=== PATIENT | male | born 1940 | race Two or more races ===

== ENCOUNTER 2022-06-25 11:32 | Emergency (ER) | payer OTHER, MEDICAID ==
[~2022-06-25] VITALS: Ht 170.2 cm; Wt 77.0 kg
[2022-06-25 19:32] VITALS: BP 144/78
== END 2022-06-25 20:57 | disposition home or self-care (01) ==
LOC: ER 14:41
DX: I10 Essential (primary) hypertension (principal); E11.9 Type 2 diabetes mellitus without complications; E78.00 Pure hypercholesterolemia, unspecified; Z98.890 Other specified postprocedural states
CPT/HCPCS: 99281

== ENCOUNTER 2023-01-08 10:26 | Inpatient (IN) | payer OTHER, MEDICAID ==
[~2023-01-08] VITALS: Ht 170.2 cm; Wt 77.2 kg
[2023-01-08 11:14] LABS: BASOPHILS % 0.2 % (0.0-2.0); EOSINOPHILS % 0.5 % (0.0-5.0); HEMATOCRIT. 44.8 % (42.0-52.0); HEMOGLOBIN. 15.1 g/dL (14.0-18.0); LYMPHOCYTES % 11.9 % (20.0-50.0); MEAN CORPUSCULAR HEMOGLOBIN 29.2 pg (28.0-32.0); MEAN CORPUSCULAR HGB CONC 33.7 g/dL (31.0-37.0); MEAN CORPUSCULAR VOLUME 86.6 fL (80.0-94.0); MEAN PLATELET VOLUME 8.6 fl (7.4-10.4); MONOCYTES % 5.7 % (2.0-8.0); NEUTROPHILS % 81.7 % (40.0-76.0); PLATELET 168 x1000/uL (130-400); RED BLOOD CELL COUNT 5.18 mill/uL (4.7-6.1); RED CELL DISTRIBUTION WIDTH 14.8 % (11.6-14.6); WHITE BLOOD COUNT 7.5 x1000/uL (4.5-11.0)
[2023-01-08 12:21] LABS: CHLORIDE 112 mEq/L (98-107); INDEX HEMOLYSI 1 (1-3); INDEX ICTERIC 1 (1-4); INDEX LIPEMIC 1 (1-3); POTASSIUM 4.3 mEq/L (3.5-5.1); SODIUM 138 mEq/L (136-145)
[2023-01-08 12:33] LABS: ALANINE AMINOTRANSFERASE 27 IU/L (13-61); ASPARTATE AMINOTRANSFERASE 19 IU/L (15-37); BILIRUBIN TOTAL 1.3 mg/dL (0.1-1.0); CALCIUM 9.2 mg/dL (8.5-10.1); CARBON DIOXIDE 20 mEq/L (21-32); CREATININE 1.3 mg/dL (0.6-1.3); GLUCOSE 154 mg/dL (70-105); PROTEIN TOTAL 7.7 g/dL (6.0-8.3); UREA NITROGEN BLOOD 23 mg/dL (7-21)
[2023-01-08 12:59] LABS: TROPONIN I HIGH SENSITIVITY 132 ng/L (<78)
[2023-01-08] MEDS ORDERED: ASPIRIN 325MG EC TABLET PO ONE (13:30)
[2023-01-08 13:45] LABS: CLARITY URINE CLEAR (CLEAR); COLOR URINE YELLOW (YELLOW); GLUCOSE URINE NEGATIVE (NEGATIVE); KETONES URINE 1+ (NEGATIVE); LEUKOCYTE ESTERASE URINE TRACE (NEGATIVE); NITRITE URINE NEGATIVE (NEGATIVE); OCCULT BLOOD URINE NEGATIVE (NEGATIVE); PROTEIN URINE 2+ (NEGATIVE); SPECIFIC GRAVITY URINE 1.024 (1.005-1.030)
[2023-01-08 13:47] LABS: YEAST URINE NONE SEEN
[2023-01-08 14:03] LABS: BACTERIA URINE FEW; RBC URINE NONE SEEN /hpf (0-2); SQUAMOUS EPITHELIAL CELL URINE RARE /lpf (RARE/1+)
[2023-01-08 15:27] LABS: TROPONIN I HIGH SENSITIVITY 124 ng/L (<78)
[2023-01-08 23:53] VITALS: BP 172/79; PULSE 67; RESP 16; TEMP 97.7
[2023-01-09 04:00] VITALS: BP 131/40; PULSE 63; RESP 18; TEMP 97.1
[2023-01-09 08:00] VITALS: BP 150/75; PULSE 68; RESP 20; TEMP 96.4
[2023-01-09] MEDS ORDERED: DEXTROSE 50% WATER 50ML SYRINGE IV PRN (08:00)
[2023-01-09] MEDS ORDERED: ONDANSETRON HCL 4MG/2ML INJ IV PRN (08:00)
[2023-01-09] MEDS ORDERED: CLONIDINE 0.1MG TABLET PO PRN (08:00)
[2023-01-09] MEDS ORDERED: LISINOPRIL 20MG TABLET PO SCH (09:00)
[2023-01-09] MEDS ORDERED: PANTOPRAZOLE SODIUM 40 MG/VIAL IV SCH (09:00)
[2023-01-09] MEDS ORDERED: ASPIRIN 81MG TABLET PO SCH (09:00)
[2023-01-09 11:10] LABS: BASOPHILS % 0.2 % (0.0-2.0); EOSINOPHILS % 1.3 % (0.0-5.0); HEMATOCRIT. 44.4 % (42.0-52.0); HEMOGLOBIN. 15.3 g/dL (14.0-18.0); LYMPHOCYTES % 17.1 % (20.0-50.0); MEAN CORPUSCULAR HGB CONC 34.5 g/dL (31.0-37.0); MEAN PLATELET VOLUME 9.3 fl (7.4-10.4); MONOCYTES % 7.1 % (2.0-8.0); NEUTROPHILS % 74.3 % (40.0-76.0); PLATELET 169 x1000/uL (130-400); RED BLOOD CELL COUNT 5.11 mill/uL (4.7-6.1); RED CELL DISTRIBUTION WIDTH 14.8 % (11.6-14.6); WHITE BLOOD COUNT 7.8 x1000/uL (4.5-11.0)
[2023-01-09 11:38] LABS: CALCIUM 9.1 mg/dL (8.5-10.1)
[2023-01-09 11:47] LABS: CREATININE 1.3 mg/dL (0.6-1.3)
[2023-01-09 12:00] VITALS: BP 139/73; PULSE 76; RESP 18; TEMP 96.8
[2023-01-09] MEDS ORDERED: BLOOD SUGAR DIAGNOSTIC STRIP TEST SCH (12:10)
[2023-01-09] MEDS ORDERED: INSULIN LISPRO 100 UNITS/ML SUBCUT SCH (12:40)
[2023-01-09 15:47] VITALS: BP 121/70; PULSE 80; TEMP 96.8; O2SAT 95
[2023-01-09 16:00] VITALS: BP 125/65; PULSE 75; RESP 15; TEMP 96
== END 2023-01-09 16:11 | disposition home or self-care (01) | DRG 392 ==
LOC: ER 12:48 → EDBEDREQSVC 22:29 → 8WST 01-09 00:10
PROVIDERS: ADMIT Internal Medicine; ATTEND Internal Medicine
DX: K52.9 Noninfective gastroenteritis and colitis, unspecified (principal); E78.00 Pure hypercholesterolemia, unspecified; I10 Essential (primary) hypertension; E11.9 Type 2 diabetes mellitus without complications; K80.20 Calculus of gallbladder without cholecystitis without obstruction; Z90.49 Acquired absence of other specified parts of digestive tract; Z79.4 Long term (current) use of insulin
CPT/HCPCS: 36415; 71045; 74176; 80048; 80053; 81003; 82962; 83036; 84484; 85025; 93005; 99285; C9113